=== PATIENT | male | born 1995 | race Hispanic/Latino ===

== ENCOUNTER 2018-08-10 22:04 | Emergency (ER) | payer SELFPAY ==
[2018-08-10] MEDS ORDERED: LIDOCAINE 1% MPF 5 ML VIAL ONE (22:47)
--- NOTE | 2018-08-10 23:59 | EDPHYS ---
Physician Documentation [facility] Name: Ari Elizondo Age: 22 yrs Sex: Male : 1995 Arrival Date: 08/10/2018 Time: 22:07 Bed 28 Private MD: ED Physician Art Crouch HPI: 08/11 00:02 This 22 yrs old Male presents to ER via Ambulatory with complaints of Finger kb Injury. 00:02 This 22 yrs old Male presents to ER via Ambulatory with complaints of Finger kb Injury. 00:02 The patient has a laceration related to: working, from a knife, occurred at work, and kb there are no complicating factors. The injury was accidental. The laceration(s) is(are) located on the palmar aspect of proximal phalanx of left index finger and dorsal aspect of distal phalanx of left thumb. Onset: The symptoms/episode began/occurred just prior to arrival. Associated signs and symptoms: The patient has no apparent associated signs or symptoms. The patient has not experienced similar symptoms in the past. The patient has not recently seen a physician. Historical: - Allergies: 08/10 22:14 No Known Allergies; ak1 - Home Meds: 22:14 None [Active]; ak1 - PMHx: 22:14 None; ak1 - PSHx: 22:14 None; ak1 - Immunization history:: Adult Immunizations unknown, Last tetanus immunization: unknown. - Social history:: Smoking status: Patient uses tobacco products, denies chronic smoking, but will smoke occasionally. - Ebola Screening: : No symptoms or risks identified at this time. ROS: 08/11 00:00 Constitutional: Negative for fever, chills, and weight loss, Cardiovascular: Negative kb for chest pain, palpitations, and edema, Respiratory: Negative for shortness of breath, cough, wheezing, and pleuritic chest pain, Abdomen/GI: Negative for abdominal pain, nausea, vomiting, diarrhea, and constipation, MS/Extremity: Negative for injury and deformity, Neuro: Negative for headache, weakness, numbness, tingling, and seizure. Skin: Positive for laceration(s), of the palmar aspect of proximal phalanx of left index finger and dorsal aspect of distal phalanx of left thumb. Exam: 00:01 Constitutional: This is a well developed, well nourished patient who is awake, alert, kb and in no acute distress. Head/Face: Normocephalic, atraumatic. Chest/axilla: Normal chest wall appearance and motion. Nontender with no deformity. No lesions are appreciated. Cardiovascular: Regular rate and rhythm with a normal S1 and S2. No gallops, murmurs, or rubs. Normal PMI, no JVD. No pulse deficits. Respiratory: Lungs have equal breath sounds bilaterally, clear to auscultation and percussion. No rales, rhonchi or wheezes noted. No increased work of breathing, no retractions or nasal flaring. Abdomen/GI: Soft, non-tender, with normal bowel sounds. No distension or tympany. No guarding or rebound. No evidence of tenderness throughout. MS/ Extremity: Pulses equal, no cyanosis. Neurovascular intact. Full, normal range of motion. Neuro: Awake and alert, GCS 15, oriented to person, place, time, and situation. Cranial nerves II-XII grossly intact. Motor strength 5/5 in all extremities. Sensory grossly intact. Cerebellar exam normal. Normal gait. 00:01 Skin: injury, laceration(s), the wound is approximately 2 cm(s), of the palmar aspect of proximal phalanx of left index finger, the second wound is approximately 1.5 cm(s), of the dorsal aspect of distal phalanx of left thumb, that can be described as clean, no foreign body, linear, without bleeding, laceration to thumb well approximated, closed. Vital Signs: 08/10 22:14 BP 130 / 84; Pulse 75; Resp 16; Temp 98.1; Pulse Ox 99% on R/A; Weight 95.25 kg (R); ak1 Height 5 ft. 4 in. (162.56 cm) (R); Pain 4/10; 08/11 00:07 BP 128 / 78 RA; Pulse 72; Resp 17 S; Pulse Ox 98% on R/A; rv 08/10 22:14 Body Mass Index 36.05 (95.25 kg, 162.56 cm) ak1 Laceration: 08/10 23:59 Wound Repair of 2cm ( 0.8in ) subcutaneous laceration to palmar aspect of proximal kb phalanx of left index finger. Linear shaped.. Distal neuro/vascular/tendon intact. Anesthesia: Wound infiltrated with 1 mls of 1% lidocaine. Wound prep: Extensive cleansing with hibiclenz by nurse by me, Wound irrigation with saline by me. Skin closed with 4 5-0 Prolene using interrupted sutures and sterile technique. Dressed with Neosporin, bandaid. Patient tolerated well. MDM: 22:23 Patient medically screened. kb 23:59 Data reviewed: vital signs, nurses notes. Data interpreted: Pulse oximetry: on room air kb is 99 %. Interpretation: normal. Counseling: I had a detailed discussion with the patient and/or guardian regarding: the historical points, exam findings, and any diagnostic results supporting the discharge/admit diagnosis, the need for outpatient follow up, a family practitioner, to return to the emergency department if symptoms worsen or persist or if there are any questions or concerns that arise at home. 08/10 23:27 Order name: Prolene, Sutures; Complete Time: 23:28 kb 08/10 23:27 Order name: Dressing - Wound; Complete Time: 23:28 kb 08/10 23:27 Order name: Gloves, Sterile; Complete Time: 23:28 kb 08/10 23:27 Order name: Setup Suture Tray; Complete Time: 23:28 kb Administered Medications: No medications were administered Disposition: 08/10/18 23:58 Discharged to Home. Impression: Laceration without foreign body of left index finger without damage to nail, Laceration without foreign body of left thumb with damage to nail. - Condition is Stable. - Discharge Instructions: Laceration Care, Adult, [id number], Form - Return To Work. - Work release form, Medication Reconciliation Form, Thank You Letter, Antibiotic Education, Prescription Opioid Use form. - Follow up: Emergency Department; When: As needed; Reason: Worsening of condition. Follow up: Private Physician; When: 2 - 3 days; Reason: Recheck today's complaints, Continuance of care, Re-evaluation by your physician. Signatures: Mabel Verdin FNP-C FNP-Roseann Landon, RN RN ak1 Surinder Carmichael RN RN rv Corrections: (The following items were deleted from the chart) 08/11 00:11 08/10 23:58 08/10/2018 23:58 Discharged to Home. Impression: Laceration without foreign rv body of left index finger without damage to nail; Laceration without foreign body of left thumb with damage to nail. Condition is Stable. Forms are Medication Reconciliation Form, Thank You Letter, Antibiotic Education, Prescription Opioid Use. Follow up: Emergency Department; When: As needed; Reason: Worsening of condition. Follow up: Private Physician; When: 2 - 3 days; Reason: Recheck today's complaints, Continuance of care, Re-evaluation by your physician. kb
--- NOTE | 2018-08-10 23:59 | ER ---
Nurse's Notes [facility] Name: rAi Elizondo Age: 22 yrs Sex: Male : 1995 Arrival Date: 08/10/2018 Time: 22:07 Bed 28 Private MD: Diagnosis: Laceration without foreign body of left index finger without damage to nail;Laceration without foreign body of left thumb with damage to nail Presentation: 08/10 22:13 Presenting complaint: Patient states: left 1st finger lac from insulation knife in his ak1 toolbox at 2140. bleeding controlled. Transition of care: patient was not received from another setting of care. Onset of symptoms was August 10, 2018. Risk Assessment: Do you want to hurt yourself or someone else? Patient reports no desire to harm self or others. Initial Sepsis Screen: Does the patient meet any 2 criteria? No. Patient's initial sepsis screen is negative. Does the patient have a suspected source of infection? No. Patient's initial sepsis screen is negative. Care prior to arrival: None. 22:13 Method Of Arrival: Ambulatory ak1 22:13 Acuity: AIDAN 4 ak1 Triage Assessment: 22:14 General: Appears in no apparent distress. Behavior is calm, cooperative. Pain: ak1 Complains of pain in left hand. Historical: - Allergies: 22:14 No Known Allergies; ak1 - Home Meds: 22:14 None [Active]; ak1 - PMHx: 22:14 None; ak1 - PSHx: 22:14 None; ak1 - Immunization history:: Adult Immunizations unknown, Last tetanus immunization: unknown. - Social history:: Smoking status: Patient uses tobacco products, denies chronic smoking, but will smoke occasionally. - Ebola Screening: : No symptoms or risks identified at this time. Screenin:14 Abuse screen: Denies threats or abuse. Denies injuries from another. Nutritional ak1 screening: No deficits noted. Tuberculosis screening: No symptoms or risk factors identified. Fall Risk None identified. Assessment: 22:23 General: Appears in no apparent distress. comfortable, Behavior is calm, cooperative. rv Pain: Complains of pain in left hand. Neuro: Level of Consciousness is awake, alert, obeys commands, Oriented to person, place, time, situation. Cardiovascular: Capillary refill < 3 seconds. Respiratory: Airway is patent. GI: No signs and/or symptoms were reported involving the gastrointestinal system. : No signs and/or symptoms were reported regarding the genitourinary system. EENT: No signs and/or symptoms were reported regarding the EENT system. Derm: Wound noted left hand Wound is CLEAN LACERATION. Derm:. Musculoskeletal: Circulation, motion, and sensation intact. Capillary refill < 3 seconds. Injury Description: Laceration sustained to dorsal aspect of distal phalanx of left thumb, palmar aspect of proximal phalanx of left index finger and left thumbnail is clean, 0.5 to 2.5 cm long, bleeding moderately. Vital Signs: 22:14 BP 130 / 84; Pulse 75; Resp 16; Temp 98.1; Pulse Ox 99% on R/A; Weight 95.25 kg (R); ak1 Height 5 ft. 4 in. (162.56 cm) (R); Pain 4/10; 08/11 00:07 BP 128 / 78 RA; Pulse 72; Resp 17 S; Pulse Ox 98% on R/A; rv 08/10 22:14 Body Mass Index 36.05 (95.25 kg, 162.56 cm) ak1 ED Course: 08/10 22:07 Patient arrived in ED. am2 22:13 Triage completed. ak1 22:14 Arm band placed on Patient placed in an exam room, on a stretcher, on pulse oximetry, ak1 Patient notified of wait time. 22:14 Patient has correct armband on for positive identification. Bed in low position. Call ak1 light in reach. Side rails up X 1. Adult w/ patient. Pulse ox on. NIBP on. 22:23 Mabel Verdin FNP-C is PHCP. kb 22:23 Art Crouch MD is Attending Physician. kb 22:23 Surinder Carmichael RN is Primary Nurse. rv 22:26 Wound care: to laceration located on left thumbnail and palmar aspect of proximal rv phalanx of left index finger was cleaned with Hibiclens, irrigated with normal saline, dressed with 4X4s, Patient tolerated well. 08/11 00:09 Assist provider with laceration repair on palmar aspect of proximal phalanx of left rv index finger that was 2.5 cm. or less using sutures. Set up tray. Performed by Mabel WEIR Dressed with 4X4s, Patient tolerated well. Patient did not have IV access during this emergency room visit. Administered Medications: No medications were administered Outcome: 08/10 23:58 Discharge ordered by . richard 08/11 00:09 Discharged to home ambulatory. rv Condition: good Discharge instructions given to patient, Instructed on discharge instructions, follow up and referral plans. Demonstrated understanding of instructions, follow-up care, wound care. 00:11 Patient left the ED. rv Signatures: Mabel Verdin FNP-C FNP-Roseann Landon, RN RN Rona Segura am2 Surinder Carmichael RN RN rv Corrections: (The following items were deleted from the chart) 00:11 00:09 No provider procedures requiring assistance completed. rv rv
== END 2018-08-11 00:11 | disposition home or self-care (01) ==
LOC: ER 22:04
PROC: 0JQK0ZZ Repair Left Hand Subcutaneous Tissue and Fascia, Open Approach (ICD-10-PCS; principal; 2018-08-10)
DX: S61.211A Laceration without foreign body of left index finger without damage to nail, initial encounter (principal); S61.012A Laceration without foreign body of left thumb without damage to nail, initial encounter; W26.0XXA Contact with knife, initial encounter; Z72.0 Tobacco use
CPT/HCPCS: 99284